=== PATIENT | male | born 1965 | race Caucasian/White ===

== ENCOUNTER 2017-10-07 16:52 | Emergency (ER) | payer SELFPAY ==
[2017-10-07] MEDS ORDERED: Aspirin 81 MG Tab.Chew PO ONE (17:26)
[2017-10-07] MEDS ORDERED: Sodium Chloride 0.9% 2.5 ML Syringe FLUSH PRN (17:26)
[2017-10-07] MEDS ORDERED: Sodium Chloride 0.9% 10 ML Syringe FLUSH PRN (17:26)
--- NOTE | 2017-10-07 17:26 | EDM.PDOC ---
ED HPI GENERAL MEDICAL PROBLEM - General Chief Complaint: General Stated Complaint: CHEST PALPITATIONS/HBP Time Seen by Provider: 10/07/17 17:25 Source of Information: Reports: Patient History Limitations: Reports: No Limitations - History of Present Illness INITIAL COMMENTS - FREE TEXT/NARRATIVE: History of present illness: []Patient is from [place] working here and ran out of his lisinopril 10 mg tablets. He has no private M.D. and plans to be here for 3 more weeks. Patient states he had strong family history of diabetes and has been feeling shaky and drinking more more fluids than and normal. He denies any fevers, Chills, vomiting or diarrhea. Review of systems: As per history of present illness and below otherwise all systems reviewed and negative. Past medical history: As per history of present illness and as reviewed below otherwise noncontributory. Surgical history: As per history of present illness and as reviewed below otherwise noncontributory. Social history: No reported history of drug or alcohol abuse. Family history: As per history of present illness and as reviewed below otherwise noncontributory. Physical exam: General: Well developed, well nourished in NAD HEENT: Atraumatic, normocephalic, pupils reactive, negative for conjunctival pallor or scleral icterus, mucous membranes moist, throat clear, neck supple, nontender, trachea midline. Lungs: Clear to auscultation, breath sounds equal bilaterally, chest nontender. Heart: S1S2, regular, negative for clicks, rubs, or JVD. Abdomen: Soft, nondistended, nontender. Negative for masses or hepatosplenomegaly. Negative for costovertebral tenderness. Pelvis: Stable nontender. Genitourinary: Deferred. Rectal: Deferred. Extremities: Atraumatic, negative for cords or calf pain. Neurovascular unremarkable. Neuro: Awake, alert, oriented. Cranial nerves II through XII unremarkable. Cerebellum unremarkable. Motor and sensory unremarkable throughout. Exam nonfocal. Diagnostics: []Point of care glucose 102, EKG normal sinus rhythm 71 without acute ischemic changes Therapeutics: []Lisinopril given here Impression: []Med refill for lisinopril Plan: []Follow up primary care for further meds and treatment Definitive disposition and diagnosis as appropriate pending reevaluation and review of above. - Related Data Home Meds: Home Meds Lisinopril 10 mg PO DAILY #20 tablet 10/07/17 [Rx] ED ROS GENERAL - Review of Systems Review Of Systems: See Below (See history of present illness) ED EXAM, GENERAL - Physical Exam Exam: See Below (See history of present illness) Course - Vital Signs Last Recorded V/S: Last Vital Signs Temp 98.0 F 10/07/17 17:15 Pulse 79 10/07/17 17:15 Resp 16 10/07/17 17:15 BP 159/97 H 10/07/17 17:40 Pulse Ox 98 10/07/17 17:15 - Orders/Labs/Meds Orders: Active Orders 24 hr Category Date Time Status Cardiac Monitoring [RC] . DIRECTED Care 10/07/17 17:26 Inactive EKG 12 Lead [EKG Documentation Completion] [RC] STAT Care 10/07/17 17:16 Active POC Glucose [Blood Glucose Check, Bedside] [RC] ONETIME Care 10/07/17 17:35 Active Saline Lock Insert [OM.PC] Stat Oth 10/07/17 17:26 Ordered Labs: Laboratory Tests 10/07/17 Range/Units 17:37 POC Glucose 102 (60-110) mg/dL Meds: Medications Discontinued Medications Generic Name Dose Route Start Last Admin Trade Name Freq PRN Reason Stop Dose Admin Aspirin 324 mg 10/07/17 17:26 Aspirin PO 10/07/17 17:27 ONETIME ONE Lisinopril 10 mg 10/07/17 17:34 10/07/17 17:40 Prinivil PO 10/07/17 17:35 10 mg ONETIME ONE Administration Nitroglycerin 0.4 mg 10/07/17 17:28 Nitrostat SL Q5M PRN Chest Pain Sodium Chloride 10 ml 10/07/17 17:26 Saline Flush FLUSH ASDIRECTED PRN Keep Vein Open Sodium Chloride 2.5 ml 10/07/17 17:26 Saline Flush FLUSH ASDIRECTED PRN Keep Vein Open Departure - Departure Time of Disposition: 17:46 Disposition: Home, Self-Care 01 Condition: Good Clinical Impression: Medicine refill - Discharge Information Prescriptions: Lisinopril 10 mg PO DAILY #20 tablet Referrals: PCP,None [Primary Care Provider] - Forms: ED Department Discharge Additional Instructions: The following information is given to patients seen in the emergency department who are being discharged to home. This information is to outline your options for follow-up care. We provide all patients seen in our emergency department with a follow-up referral. The need for follow-up, as well as the timing and circumstances, are variable depending upon the specifics of your emergency department visit. If you don't have a primary care physician on staff, we will provide you with a referral. We always advise you to contact your personal physician following an emergency department visit to inform them of the circumstance of the visit and for follow-up with them and/or the need for any referrals to a consulting specialist. The emergency department will also refer you to a specialist when appropriate. This referral assures that you have the opportunity for follow-up care with a specialist. All of these measure are taken in an effort to provide you with optimal care, which includes your follow-up. Under all circumstances we always encourage you to contact your private physician who remains a resource for coordinating your care. When calling for follow-up care, please make the office aware that this follow-up is from your recent emergency room visit. If for any reason you are refused follow-up, please contact the [facility] Emergency Department at and asked to speak to the emergency department charge nurse. Take lisinopril daily follow-up with your primary care doctor for further meds and treatment. [facility] [address] [place] [id number] - My Orders Last 24 Hours: My Active Orders 10/07/17 17:16 EKG 12 Lead [EKG Documentation Completion] [RC] STAT 10/07/17 17:26 Cardiac Monitoring [RC] . DIRECTED Saline Lock Insert [OM.PC] Stat 10/07/17 17:35 POC Glucose [Blood Glucose Check, Bedside] [RC] ONETIME - Assessment/Plan Last 24 Hours: My Active Orders 10/07/17 17:16 EKG 12 Lead [EKG Documentation Completion] [RC] STAT 10/07/17 17:26 Cardiac Monitoring [RC] . DIRECTED Saline Lock Insert [OM.PC] Stat 10/07/17 17:35 POC Glucose [Blood Glucose Check, Bedside] [RC] ONETIME
[2017-10-07] MEDS ORDERED: Nitroglycerin 0.4 MG Tab.SL SL PRN (17:28)
[2017-10-07] MEDS ORDERED: Lisinopril 10 MG Tab PO ONE (17:34)
== END 2017-10-07 18:08 | disposition home or self-care (01) ==
LOC: MW.ED 16:52
DX: Z76.0 Encounter for issue of repeat prescription (principal)
CPT/HCPCS: 82962; 93005; 99281; A9270